=== PATIENT | female | born 1970 | race Caucasian/White ===

== ENCOUNTER → 2016-04-03 10:30 | Outpatient (CLI) | payer MEDICAID | END | disposition home or self-care (01) | LOC: D.MRI 03-22 10:00 | DX: R20.0 Anesthesia of skin (principal) ==

== ENCOUNTER 2018-10-16 07:30 | Day surgery (SDC) | payer MEDICARE ==
[2018-10-15 10:48] LABS: HEMATOCRIT 44.6 % (36.0-48.0); HEMOGLOBIN 15.7 g/dL (12-16); MCH 30.8 pg (26.0-34.0); MCHC 35.2 g/dL (31.0-37.0); MCV 87.6 fL (80.0-100.0); MEAN PLATELET VOLUME 11.2 fL (7.4-10.4); RBC 5.09 10x6/uL (4.00-5.40); RDW 14.6 % (11.5-14.5); WBC 7.9 10x3/uL (4.8-10.8)
[2018-10-15 10:58] LABS: ANION GAP 10.9 mmol/L (8-16); CALCIUM 9.2 mg/dL (8.5-10.1); CARBON DIOXIDE 31.9 mmol/L (21.0-32.0); CREATININE - SERUM 1.2 mg/dL (0.6-1.3); POTASSIUM - SERUM 3.8 mmol/L (3.5-5.1)
[~2018-10-16] VITALS: Ht 165.1 cm; Wt 95.3 kg
[~2018-10-16 07:30] MED LIST: LOSARTAN/HCT TAB 50- PO; NORVASC5 MG PO; TOPROL XL25 MG PO; WELLBUTRIN SR150 MG PO; ZOLOFT100 MG PO
[2018-10-16 08:37] VITALS: BP 118/61; Ht 165.1 cm; Wt 95.3 kg
[2018-10-16] MEDS ORDERED: BACLOFEN10 MG PO (08:58)
--- NOTE | 2018-10-16 09:11 | NUR ---
NOTIFIED AND REVIEWED PT'S BEHAVIOR AND ASSESSMENT RESULTS. PT IS A LOW RISK PER DR. RODRIGUEZ. DR. RODRIGUEZ STATED TO GIVE RESOURCES TO PT AT TIME OF DISCHARGE. NO FURTHER ORDERS AT THIS TIME. RESOURCES REVIEWED WITH PT AND SHE VERBALIZIED UNDERSTANDING. PATIENT IS CURRENTLY ON MEDICATION FOR DEPRESSION.
[2018-10-16] MEDS ORDERED: HYDROCODON-ACE1 EA10 PO (14:35)
--- NOTE | 2018-10-16 15:27 | NUR ---
1520-FULL LIQUID TRAY TO ROOM
--- NOTE | 2018-10-16 15:27 | NUR ---
1512-REC'D FROM RR. AWAKE AND ALERT,DENIES PAIN, DRESSING CDI. VSS. PARENTS AT BEDSIDE. CL IN EASY REACH
--- NOTE | 2018-10-16 18:04 | NUR ---
1620-DISCHARGE CRITERIA MET. REMOVED IV WITH CATH INTACT, DISPOSED INTO SHARPS CONTAINER,COVERED AREA WITH BANDAID. REVIEWED DISCHARGE INSTRUCTIONS WITH PT AND MOTHER.VERBALIZED UNDERSTANDING WITHOUT QUESTIONS OR CONCERNS. ESCORTED OUT VIA W/C WITH FATHER DRIVING HOME.
--- NOTE | 2018-11-26 16:12 | OP ---
PATIENT NAME: SON GRADY MEDICAL RECORD: [id number] :66 LOCATION:[facility] ADMISSION DATE: SURGEON: ALPA STEPHENS MD DATE OF OPERATION: 10/16/2018 PREOPERATIVE DIAGNOSES: Lumbar spinal stenosis and foraminal stenosis at L4-L5 and L5-S1 on the left. PROCEDURES: Lumbar laminotomy, medial facetectomy and foraminotomy at L4-L5 and L5-S1, left with METRx retractor. SURGEON: Alpa Stephens MD DESCRIPTION AND TECHNIQUE: After induction of general endotracheal anesthesia, the patient was rolled prone on a Brad frame. Lumbar spine was prepped and draped in usual sterile fashion. Fluoroscopic x-ray and spinal needle localized the L4-L5 interspace on the left side. A series of dilators were used to advance a METRx retractor at L4-L5 on the left. The level was confirmed with fluoroscopic x-ray. Using a microscope and [employer] drill, a laminotomy, medial facetectomy and foraminotomy were carried out at L4-L5 and L5-S1 on the left. Hypertrophied ligamentum flavum was removed within the spinal canal as well as the foramina at L4-L5 and L5-S1 on the left. Following this, the L4, L5 and S1 nerve roots were decompressed well. Meticulous hemostasis was maintained throughout the wound and the wound was irrigated with copious amounts of Ancef irrigant solution. The retractor was removed. The fascia was closed with 2-0 Vicryl suture, the subdermal layer was closed with 3-0 Vicryl suture. The skin was closed with lesli. A sterile dressing was applied to the wound. The patient was awakened in good condition and taken to recovery. All counts were reported as correct. Estimated blood loss was minimal. TRANSINT:[id number] Voice Confirmation ID: [id number] DOCUMENT ID: [id number] ALPA STEPHENS MD at 1612 CC: [id number] DICTATION DATE: 11/26/18 1346 PROFESSOR OF MARKETING: 11/26/18 1404 [facility] [place] 10/16/18 [place] [id number]
== END 2018-10-16 16:20 | disposition home or self-care (01) ==
LOC: D.OPS 07:30 → D.PAN 10:15 → D.OPS 12:00
PROVIDERS: Anesthesiology; ATTEND Neurological Surgery
DX: M48.061 Spinal stenosis, lumbar region without neurogenic claudication (principal)

== ENCOUNTER → 2019-07-02 12:31 | Outpatient (CLI) | payer MEDICARE ==
[2018-10-16 08:37] VITALS: BMI 35.0
[~2019-07-02 12:31] MED LIST changes: +BACLOFEN10 MG PO; +HYDROCODON-ACE1 EA10 PO
== END | disposition home or self-care (01) ==
LOC: D.MRI 12:31
PROVIDERS: ATTEND Clinical Nurse Specialist Adult Health
DX: M54.16 Radiculopathy, lumbar region (principal)